=== PATIENT | female | born 1975 | race American Indian/Alaskan Native ===

== ENCOUNTER 2018-06-06 16:55 | Emergency (ER) | payer MEDICARE ==
[2018-06-06 17:12] VITALS: BP 205/100
== END 2018-06-06 17:10 | disposition left against medical advice (07) ==
LOC: ED 16:55
DX: R10.9 Unspecified abdominal pain (principal); Z53.21 Procedure and treatment not carried out due to patient leaving prior to being seen by health care provider

== ENCOUNTER 2018-12-04 00:10 | Emergency (ER) | payer MEDICARE ==
[2018-12-04] MEDS ORDERED: CATAPRES ONE (00:30)
[2018-12-04] MEDS ORDERED: CATAPRES PO ONE (00:35)
[2018-12-04 01:26] LABS: Basophils % (Auto) 0.6 % (0.0-1.8); Eosinophils % (Auto) 0.7 % (0.0-4.3); Hematocrit 32.1 % (30.3-42.9); Hemoglobin 10.7 gm/dl (10.1-14.3); Lymphocytes # (Auto) 1.9 K/mm3 (1.2-5.4); Lymphocytes % (Auto) 27.2 % (13.4-35.0); Mean Corpuscular HGB Conc 34 % (30-34); Mean Corpuscular Volume 81 fl (79-97); Monocytes # (Auto) 0.5 K/mm3 (0.0-0.8); Platelet Count 270 K/mm3 (140-440); Red Blood Count 3.98 M/mm3 (3.65-5.03); Red Cell Distribution Width 19.1 % (13.2-15.2)
[2018-12-04 01:42] LABS: Alanine Aminotransferase 15 units/L (7-56); Albumin 3.7 g/dL (3.9-5); BUN/Creatinine Ratio 13; Blood Urea Nitrogen 10 mg/dL (7-17); Calcium 8.7 mg/dL (8.4-10.2); Hemolysis Index 3
--- NOTE | 2018-12-04 01:45 | Emergency Department Report ---
ED Abdominal Pain HPI - General Chief Complaint: Abdominal Pain Stated Complaint: ABD PAIN Time Seen by Provider: 12/04/18 01:27 Source: patient Mode of arrival: Ambulatory Limitations: No Limitations - History of Present Illness Initial Comments: Mrs. Deng is a very pleasant healthy 43-year-old female with history of hypertension, congestive heart failure, umbilical hernia who has now dull pain in the area of the hernia. She has a gas-like pain which has subsided. She desires referral to general surgeon. Denies vomiting. Denies constipation. She has not sexuallty active. MD Complaint: abdominal pain -: Gradual Severity scale (0 -10): 10 Quality: dull Consistency: now resolved Improves With: nothing Worsens With: nothing - Related Data Allergies Allergy/AdvReac Type Severity Reaction Status Date / Time No Known Allergies Allergy Verified 12/04/18 00:33 ED Review of Systems ROS: Stated complaint: ABD PAIN Other details as noted in HPI Comment: All other systems reviewed and negative Constitutional: denies: fever, malaise Respiratory: denies: cough Cardiovascular: denies: chest pain ED Past Medical Hx - Past Medical History Previous Medical History?: Yes Hx Hypertension: Yes Hx Congestive Heart Failure: Yes Additional medical history: Anemia, Morbid Obesity - Surgical History Additional Surgical History: "head surgery" - Social History Smoking Status: Never Smoker Substance Use Type: None ED Physical Exam - General Limitations: No Limitations General appearance: alert, in no apparent distress, other (smiling and laughing and appears comfortable repeat blood pressure 148/77) - Head Head exam: Present: atraumatic, normocephalic - Eye Eye exam: Present: normal appearance - ENT ENT exam: Present: mucous membranes moist - Neck Neck exam: Present: normal inspection, full ROM - Respiratory Respiratory exam: Present: normal lung sounds bilaterally. Absent: respiratory distress, wheezes, rales - Cardiovascular Cardiovascular Exam: Present: regular rate, normal rhythm, normal heart sounds. Absent: systolic murmur, diastolic murmur, rubs, gallop - GI/Abdominal GI/Abdominal exam: Present: soft, normal bowel sounds, hernia (6 cm ventral hernia soft nontender reducible). Absent: distended, tenderness, guarding, rebound - Extremities Exam Extremities exam: Present: normal inspection - Back Exam Back exam: Present: normal inspection - Neurological Exam Neurological exam: Present: alert, oriented X3 - Psychiatric Psychiatric exam: Present: normal affect, normal mood - Skin Skin exam: Present: warm, dry, intact, normal color. Absent: rash ED Course Vital Signs 12/04/18 12/04/18 12/04/18 00:20 00:26 00:37 Temperature 97.6 F 97.6 F Pulse Rate 74 77 77 Respiratory 18 18 Rate Blood Pressure 233/112 233/112 233/112 Blood Pressure [Left] O2 Sat by Pulse 93 Oximetry 12/04/18 01:32 Temperature Pulse Rate 74 Respiratory 18 Rate Blood Pressure Blood Pressure 148/77 [Left] O2 Sat by Pulse 97 Oximetry ED Medical Decision Making - Lab Data Result diagrams: 12/04/18 00:43 Laboratory Results - last 24 hr 12/04/18 12/04/18 00:43 00:43 WBC 7.0 RBC 3.98 Hgb 10.7 Hct 32.1 MCV 81 MCH 27 L MCHC 34 RDW 19.1 H Plt Count 270 Lymph % (Auto) 27.2 [place] % (Auto) 7.0 Eos % (Auto) 0.7 Baso % (Auto) 0.6 Lymph # 1.9 [place] # 0.5 Eos # 0.0 Baso # 0.0 Seg Neutrophils % 64.5 Seg Neutrophils # 4.5 Sodium 141 Potassium 3.6 Chloride 102.5 Carbon Dioxide 28 Anion Gap 14 BUN 10 Creatinine 0.8 Estimated GFR > 60 BUN/Creatinine Ratio 13 Glucose 106 H Calcium 8.7 Total Bilirubin 0.30 AST 18 ALT 15 Alkaline Phosphatase 65 Total Protein 8.2 Albumin 3.7 L Albumin/Globulin Ratio 0.8 - Medical Decision Making 1. Abdominal pain due to ventral hernia no signs of peritonitis or obstruction. Reducible. No indication of incarceration or stimulation. Referred to general surgeon on-call. CBC chemistry within normal limits. Normal white count. 2. Hypertensive urgency, repeat blood pressure without intervention 148/77. Asymptomatic. Discharged home instructed to eat a high-fiber diet. Critical care attestation.: If time is entered above; I have spent that time in minutes in the direct care of this critically ill patient, excluding procedure time. ED Disposition Clinical Impression: Abdominal pain, Hypertensive urgency, Ventral hernia Disposition: - TO HOME OR SELFCARE Is pt being admited?: No Does the pt Need Aspirin: No Condition: Stable Instructions: Ventral Hernia (ED) Referrals: ROMARIO DYE MD [Staff Physician] - 3-5 Days Forms: Work/School Release Form(ED)
[2018-12-04 01:55] LABS: Bilirubin,Urine NEG (Negative); Blood,Urine NEG (Negative); Color,Urine Straw (Yellow); Protein,Urine <15 mg/dL mg/dL (Negative); Urobilinogen,Urine < 2.0 mg/dL (<2.0); WBC,Urine < 1.0 /HPF (0.0-6.0)
[2018-12-04 02:32] VITALS: BP 140/76
== END 2018-12-04 02:15 | disposition home or self-care (01) ==
LOC: ED 00:10
DX: I16.0 Hypertensive urgency (principal); K43.9 Ventral hernia without obstruction or gangrene
CPT/HCPCS: 36415; 80053; 81001; 84703; 85025; 99283